=== PATIENT | female | born 1975 | race Caucasian/White ===

== ENCOUNTER → 2016-08-21 | Outpatient (CLI) | payer OTHER ==
--- NOTE | 2016-08-21 11:32 | DIAGNOSTIC IMAGING REPORT ---
PET/CT CLINICAL HISTORY: Lymphoma. COMPARISON STUDY: PET CT dated 02/28/2016 and 05/08/2015. TECHNIQUE: One hour following the IV administration of 15.8 mCi of F-18 FDG, PET/CT examination was performed from the orbital meatal line through the bony pelvis. Noncontrast CT is performed for the purposes of anatomic correlation and attenuation correction. Note that this does not reflect a diagnostic CT examination. Images were reviewed on a separate [employer] independent workstation. Fused images were obtained. Standard uptake values reported are maximum values within the region of interest expressed in gm/mL. FINDINGS: PET FINDINGS: Head and neck: There is expected physiologic activity within the visualized brain parenchyma at the skull base and the salivary glands. There are no pathologically enlarged or FDG avid cervical lymph nodes. Thorax: Evaluation of the thorax demonstrates expected physiologic myocardial activity. There no pathologically enlarged or FDG avid mediastinal, hilar, or axillary lymph node. Abdomen and pelvis: There is expected activity within the liver, spleen, kidneys, renal collecting system, and bladder. Low-level bowel activity is likely within physical limits. The spleen is normal in size measuring 7.8 cm in length. There are subcentimeter calcification containing retroperitoneal lymph nodes. The largest is seen on image #116 and measures up to 6 mm in short axis. These nodes were not FDG avid and are consistent with treated disease. No pathologically enlarged or FDG avid upper abdominal, mesenteric, retroperitoneal, pelvic sidewall, or inguinal lymph nodes are identified. Unenhanced CT images: The bony orbits are intact as imaged. The orbital contents are normal in appearance. The visualized paranasal sinuses and mastoid air cells are clear. The salivary and thyroid glands are within normal limits. The thoracic aorta is normal in caliber. The heart is normal in size and without pericardial effusion. The lungs and pleural spaces are clear. The unenhanced liver, gallbladder, spleen, pancreas, adrenal glands, and kidneys are grossly unremarkable. The abdominal aorta is normal in course and caliber. No bowel obstruction is identified. A normal appendix is seen. There is no abdominal ascites or intraperitoneal free air. A small fat-containing umbilical hernia is noted. The bladder is decompressed and not well assessed. The uterus and adnexa are normal as visualized. No destructive bony lesion is seen. IMPRESSION: 1. There is no evidence of FDG avid metastatic disease. 2. The spleen is normal in size. 3. Subcentimeter calcification containing retroperitoneal lymph nodes are consistent with treated disease. Electronically signed by: Samm Reddy M.D. 08/21/2016 11:31 AM Dictated Date/Time: 08/21/2016 11:24 AM
== END | disposition home or self-care (01) ==
LOC: C.PET 08:29
PROVIDERS: ATTEND Internal Medicine Hematology
DX: C83.30 Diffuse large B-cell lymphoma, unspecified site (principal)

== ENCOUNTER → 2016-08-31 | Outpatient (CLI) | payer OTHER ==
[2016-08-31 10:44] LABS: BASO % 0.5 %; BASO ABS # 0.02 K/uL (0-0.2); COMPLETE YES; EOS % 0.8 %; HEMATOCRIT 41.3 % (37-47); LYMPH % 36.3 %; LYMPH ABS # 1.34 K/uL (1.2-3.4); MEAN CELL VOLUME 85.3 fL (80-100); MEAN CORPUSCULAR HEMOGLOBIN 29.8 pg (25-34); MEAN CORPUSCULAR HGB CONC 34.9 g/dl (32-36); MEAN PLATELET VOLUME 10.9 fL (7.4-10.4); MONO % 8.7 %; NEUT % 53.7 %; PLATELET COUNT 199 K/uL (130-400); RED BLOOD COUNT 4.84 M/uL (4.2-5.4); WHITE BLOOD COUNT 3.69 K/uL (4.8-10.8)
[2016-08-31 11:27] LABS: BLOOD UREA NITROGEN 10 mg/dl (7-18); CREATININE 0.88 mg/dl (0.60-1.20); GLUCOSE 78 mg/dl (70-99)
[2016-08-31 11:28] LABS: ALT/SGPT 38 U/L (12-78); AST/SGOT 22 U/L (15-37); BUN/CREATININE RATIO 11.8 (10-20); CARBON DIOXIDE 27 mmol/L (21-32); CHLORIDE 109 mmol/L (98-107); POTASSIUM 4.2 mmol/L (3.5-5.1); SODIUM 145 mmol/L (136-145)
[2016-08-31 11:31] LABS: ALB/GLOB RATIO 1.3 (0.9-2); ALKALINE PHOSPHATASE 125 U/L (45-117); CHOLESTEROL 162 mg/dl (0-200); CHOLESTEROL/HDL RATIO 2.9; HDL CHOLESTEROL 56 mg/dl; LDL CHOLESTEROL CALCULATED 59 mg/dl; TRIGLYCERIDES 236 mg/dl (0-150); VERY LOW DENSITY LIPOPROT CALC 47 mg/dl
== END | disposition home or self-care (01) ==
LOC: C.LAB 10:16
PROVIDERS: ATTEND Internal Medicine
DX: C83.30 Diffuse large B-cell lymphoma, unspecified site (principal); Z83.49 Family history of other endocrine, nutritional and metabolic diseases